=== PATIENT | female | born 1995 | race Caucasian/White ===

== ENCOUNTER 2018-07-21 13:34 | Emergency (ER) | payer OTHER, SELFPAY ==
[2018-07-21 13:35] VITALS: BP 154/72; PULSE 16; RESP 78; TEMP 37.2; O2SAT 99; BMI 39.9
[2018-07-21] MEDS: Naproxen 500 MG Tablet PO (14:11)
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
[2018-07-21 14:52] VITALS: PULSE 76; RESP 17; O2SAT 98
== END 2018-07-21 14:55 | disposition home or self-care (01) ==
LOC: ED 14:00
PROVIDERS: Emergency Provider Emergency Medicine; Family Provider Pediatrics; PCP Pediatrics
DX: T14.8XXA Other injury of unspecified body region, initial encounter (principal); V49.40XA Driver injured in collision with unspecified motor vehicles in traffic accident, initial encounter; Y93.9 Activity, unspecified; Y92.9 Unspecified place or not applicable; Y99.9 Unspecified external cause status
CPT/HCPCS: 99283